=== PATIENT | female | born 1940 | race African-American/Black ===

== ENCOUNTER 2020-07-22 06:48 | Emergency (ER) | payer MEDICARE, OTHER ==
[2020-07-22] MEDS ORDERED: MORPHINE SULFATE 10 MG/ML INJ IV ONE (07:26)
[2020-07-22] MEDS ORDERED: ONDANSETRON HCL INJ/PF 4 MG/2 ML SDV IV ONE (07:26)
[2020-07-22] MEDS ORDERED: NORMAL SALINE 500 ML IV ONE (07:27)
--- NOTE | 2020-07-22 07:34 | ER Document Report ---
ED General - General Chief Complaint: Nausea/Vomiting Stated Complaint: NAUSEA/VOMITING,ABDOMINAL PAIN Time Seen by Provider: 07/22/20 07:14 Primary Care Provider: TRIPP ESPAÑA MD [Primary Care Provider] - Follow up as needed - HPI Notes: Patient is a 79-year-old female who presents to the emergency department for evaluation of abdominal pain, nausea, vomiting, constipation. The patient states that she normally has 2-3 bowel movements daily. She has not had a bowel movement in 3 days. She woke suddenly this morning at with nausea and vomiting and a sharp and stabbing left lower quadrant pain. She has never had pain similar to this in the past. She currently rates it a 5 out of 10 she has had multiple episodes of nonbloody, nonbilious emesis. She states her last bowel movement several days ago was normal. She states at times she feels as if she is going to pass out. Denies any urinary symptoms. She has had some GI issues, is due for endoscopy and colonoscopy at [facility]. - Related Data Allergies/Adverse Reactions: adhesive tape [Adhesive Tape] Allergy (Verified 07/25/12 11:23) iodine [Iodine] Allergy (Verified 07/25/12 11:23) Penicillins Allergy (Verified 07/25/12 11:23) Home Medications: Bydureon, Lantus, Lasix, Celebrex, losartan, Synthroid Past Medical History - General Information source: Patient - Social History Smoking Status: Never Smoker Family History: Reviewed & Not Pertinent - Past Medical History Cardiac Medical History: Reports: Hx Hypertension Endocrine Medical History: Reports: Hx Diabetes Mellitus Type 2, Hx Hypothyroidism GI Medical History: Reports: Hx Gastroesophageal Reflux Disease Musculoskeletal Medical History: Reports Hx Arthritis Past Surgical History: Reports: Hx Appendectomy, Hx Cholecystectomy, Hx Hysterectomy - Immunizations Hx Diphtheria, Pertussis, Tetanus Vaccination: Yes Review of Systems - Review of Systems Constitutional: No symptoms reported EENT: No symptoms reported Cardiovascular: No symptoms reported Respiratory: No symptoms reported Gastrointestinal: See HPI Genitourinary: No symptoms reported Musculoskeletal: No symptoms reported Skin: No symptoms reported Neurological/Psychological: No symptoms reported -: Yes All other systems reviewed and negative Physical Exam - Vital signs Vitals: Temp Resp Pulse Ox 98.4 F 20 100 07/22/20 06:59 07/22/20 06:59 07/22/20 06:59 - Notes Notes: This is a 79-year-old female who appears her stated age in a moderate amount of distress. She appears uncomfortable, mildly tachypneic. Vital signs reviewed, please refer to chart. Head is normocephalic, atraumatic. Pupils equal round, reactive to light. Neck is supple without meningismus. Heart is regular rate and rhythm. Lungs are clear to auscultation bilaterally. Abdomen is soft, diffusely tender without rebound or guarding, bowel sounds diminished but noted throughout. Extremities without cyanosis, clubbing. 3+ pitting foot and ankle edema noted. Posterior calves are nontender. Peripheral pulses are equal. Ski n is warm and dry. Patient is awake, alert, neurological exam is nonfocal. Course - Re-evaluation Re-evalutation: 07/22/20 07:33 Patient presents emergency department for evaluation. She is placed on a air sampling and monitoring, laboratory investigations are ordered. I did go ahead and order a CT scan of the abdomen pelvis with oral contrast only. The patient has an allergy to iodine. She is unsure as to what caused that, is unsure as to whether or not she is had an IV contrasted scan. I will go ahead and order just oral contrast at this time. We will treat this patient's pain and nausea. She is currently stable, we will continue to monitor. 07/22/20 11:17 I reviewed this patient's CT scan. She seems to have a large amount of urine in her bladder. She states that she does have some history of retention, states she has some difficulty emptying her bladder. I did order a bedside commode to the room, the patient is to try to urinate. She is to have a post void residual ultrasound performed to find out if she is retaining. Urinalysis to be sent. I do see a large amount of stool on the scan as well. I do not see any obvious signs of bowel obstruction. Awaiting radiologist's read. 07/22/20 12:54 Patient remains pain-free. Ultrasound reveals hydronephrosis. Her urinalysis ends up revealing large blood. I strongly suspect that this time the patient has passed a kidney stone. She really has minimal pain at this time, she may have passed into the bladder already, but her pain is still present mildly. She is not had any vomiting after being treated. I will consider home with pain medicine, nausea medicine. She already has some constipation issues, I will send her home with some Colace as well. I will send her with some Flomax as well. She is warned about orthostatic hypotension with this medication. The patient has a history of known urinary retention, she follows with Dr. De Leon. Bladder scan showed under 400 cc, but over 300 cc of urine. I talked at length with the patient as well as her daughter. I am not inclined to place a Aragon catheter at this time, given that this is an ongoing problem, the patient is not symptomatic with it. I encouraged him to follow-up closely with her u rologist, and they are amenable to this plan. She is to return to the emergency department for worsening or new concerning symptoms of any sort. - Vital Signs Vital signs: Temp Pulse Resp BP Pulse Ox 98.4 F 21 H 166/85 H 99 07/22/20 10:01 07/22/20 10:30 07/22/20 10:30 07/22/20 10:30 - Laboratory Result Diagrams: 07/22/20 08:05 07/22/20 08:05 Laboratory results interpreted by me: 07/22/20 07/22/20 07/22/20 08:05 08:05 11:52 Seg Neutrophils % 78.1 H Potassium 3.5 L Carbon Dioxide 31 H BUN 24 H Glucose 193 H Urine Protein 30 H Urine Glucose (UA) 150 H Urine Blood MODERATE H - Diagnostic Test Radiology reviewed: Image reviewed, Reports reviewed Radiology results interpreted by me: 07/22/20 12:57 Abdomen/Pelvis CT 07/22/20 07:27 IMPRESSION: Moderate left-sided hydronephrosis and perinephric stranding. The re is dilatation of at least the proximal and mid ureter. The left ureter runs adjacent to several cervical clips resulting in severe beam hardening artifact. Ureteral stone could easily be obscured. Moderate bladder distention. No evidence of bowel obstruction. Discharge - Discharge Clinical Impression: Left lower quadrant abdominal pain, Hydronephrosis of left kidney, Urinary retention Nausea and vomiting Qualifiers: Vomiting type: unspecified Vomiting Intractability: non-intractable Qualified Code(s): R11.2 - Nausea with vomiting, unspecified Condition: Stable Disposition: HOME, SELF-CARE Instructions: Abdominal Pain ([facility]), Vomiting ([facility]), Kidney Stone ([facility]), Urinary Retention ([facility]) Additional Instructions: Your findings today are most consistent with a kidney stone on the left. It is unclear at this time as to whether or not you have passed this. Please take medications as prescribed. Watch for constipation with the Percocet. As discussed, it does show that you are retaining some urine on examination here. As this is a known problem, we will have you follow-up with your urologist in regards to it. Please get up slowly with the Flomax as discussed. Follow-up with your urologist next week. Return to the emergency department with worsening or new concerning symptoms of any sort. Referrals: TRIPP ESPAÑA MD [Primary Care Provider] - Follow up as needed
[2020-07-22 08:27] LABS: ABSOLUTE LYMPHOCYTES (AUTO) 1.1 10^3/uL (0.5-4.7); ABSOLUTE MONOCYTES (AUTO) 0.3 10^3/uL (0.1-1.4); ABSOLUTE NEUT (AUTO) 4.9 10^3/uL (1.7-8.2); BASOPHILS % (AUTO) 0.4 % (0-2); EOSINOPHILS % (AUTO) 0.2 % (0-6); HEMATOCRIT 39.8 % (36.0-47.0); HEMOGLOBIN 13.7 g/dL (12.0-15.5); LYMPHOCYTES % (AUTO) 16.7 % (13-45); MEAN CORPUSCULAR HEMOGLOBIN 30.5 pg (27.0-33.4); MEAN CORPUSCULAR HGB CONC 34.5 g/dL (32.0-36.0); MEAN CORPUSCULAR VOLUME 88 fl (80-97); MONOCYTES % (AUTO) 4.6 % (3-13); PLATELET COUNT 189 10^3/uL (150-450); RED BLOOD COUNT 4.51 10^6/uL (3.72-5.28); RED CELL DISTRIBUTION WIDTH 12.5 % (11.5-14.0); SEGMENTED NEUTROPHILS % (AUTO) 78.1 % (42-78); TOTAL CELLS COUNTED % (AUTO) 100 %; WHITE BLOOD COUNT 6.3 10^3/uL (4.0-10.5)
[2020-07-22] MEDS ORDERED: PROMETHAZINE HCL INJ 25 MG/1 ML VIAL IV ONE (08:40)
[2020-07-22 08:57] LABS: ALBUMIN 4.1 g/dL (3.5-5.0); ALKALINE PHOSPHATASE 76 U/L (38-126); ANION GAP 9 (5-19); ASPARTATE AMINO TRANSFERASE 32 U/L (14-36); BILIRUBIN,DIRECT 0.2 mg/dL (0.0-0.4); BILIRUBIN,TOTAL 0.5 mg/dL (0.2-1.3); BLOOD UREA NITROGEN 24 mg/dL (7-20); CALCIUM 9.5 mg/dL (8.4-10.2); CARBON DIOXIDE 31 mmol/L (22-30); CHLORIDE 103 mmol/L (98-107); GLUCOSE 193 mg/dL (75-110); POTASSIUM 3.5 mmol/L (3.6-5.0); TOTAL PROTEIN 6.8 g/dL (6.3-8.2)
--- NOTE | 2020-07-22 11:22 | RADIOLOGY REPORT (SQ) ---
EXAM DESCRIPTION: CT ABD/PELVIS ORAL ONLY IMAGES COMPLETED DATE/TIME: 07/22/2020 11:08 am REASON FOR STUDY: N/V, constipation, eval for obstruction COMPARISON: None. TECHNIQUE: CT scan of the abdomen and pelvis performed without intravenous or oral contrast. Images reviewed with lung, soft tissue, and bone windows. Reconstructed coronal and sagittal MPR images revi ewed. All images stored on PACS. All CT scanners at this facility use dose modulation, iterative reconstruction, and/or weight based d osing when appropriate to reduce radiation dose to as low as reasonably achievable (ALARA). [facility]: Dose Right [facility]: CareDose [facility]: Dose Right [facility]: Teradose 4D [facility]: Smart [facility] RADIATION DOSE: CT Rad equipment meets quality standard of care and radiation dose reduction techniq ues were employed. CTDIvol: 10.3 mGy. DLP: 518 mGy-cm.mGy. LIMITATIONS: None. FINDINGS: LOWER CHEST: Bibasilar pleural thickening. Minimal basilar atelectasis. Small pericardia l effusion and/or pericardial thickening. NON-CONTRASTED LIVER, SPLEEN, ADRENALS: Evaluation limited by lack of IV contrast. No identified sign ificant masses. PANCREAS: No masses. No peripancreatic inflammatory changes. GALLBLADDER: Surgically absent. RIGHT KIDNEY AND URETER: No suspicious masses. Assessment limited by lack of IV contrast. Small non obstructing right renal calculi. No hydronephrosis or hydroureter. LEFT KIDNEY AND URETER: No suspicious masses. Assessment limited by lack of IV contrast. 4.6 mm non obstructing stone in the mid pole the left kidney. There is moderate left-sided hydronephrosis and hydroureter. There is left perinephric stranding. No definite ureteral stone but ureter runs adjace nt to several surgical clips which results in significant artifact. Small ureteral stone could easil y be obscured. AORTA AND RETROPERITONEUM: No aneurysm. No retroperitoneal masses or adenopathy. BOWEL AND PERITONEAL CAVITY: No obvious masses or inflammatory changes. No free fluid. APPENDIX: Normal. PELVIS, BLADDER, AND ABDOMINAL WALL:Bladder distention. BONES: No significant findings. OTHER: No other significant finding. IMPRESSION: Moderate left-sided hydronephrosis and perinephric stranding. There is dilatation of at least the proximal and mid ureter. The left ureter runs adjacent to several cervical clips resultin g in severe beam hardening artifact. Ureteral stone could easily be obscured. Moderate bladder distention. No evidence of bowel obstruction. COMMENT: Quality ID # [id number]: Final reports with documentation of one or more dose reduction techniques (e.g., Automated exposure control, adjustment of the mA and/or kV according to patient size, use of iterative reconstruction technique) TECHNICAL DOCUMENTATION: JOB ID: [id number] 2010 [employer]- All Rights Reserved Reading location - IP/workstation name: [email or web address]
[2020-07-22 12:06] LABS: APPEARANCE,URINE SLIGHTLY-CLOUDY; BILIRUBIN,URINE NEGATIVE (NEGATIVE); COLOR,URINE STRAW; GLUCOSE, URINE 150 mg/dL (NEGATIVE); KETONES,URINE NEGATIVE (NEGATIVE); LEUKOCYTE ESTERASE,URINE NEGATIVE (NEGATIVE); NITRITE,URINE NEGATIVE (NEGATIVE); PROTEIN,URINE 30 mg/dL (NEGATIVE); UROBILINOGEN,URINE NEGATIVE mg/dL (<2.0)
[2020-07-22] MEDS ORDERED: TAMSULOSIN HCL 0.4 MG CAP.SR.24H PO ONE (12:15)
[2020-07-22 13:15] VITALS: BP 181/79
== END 2020-07-22 13:27 | disposition home or self-care (01) ==
LOC: ER 06:48
DX: N13.30 Unspecified hydronephrosis (principal); R33.9 Retention of urine, unspecified; R11.2 Nausea with vomiting, unspecified; R10.9 Unspecified abdominal pain; K59.00 Constipation, unspecified; I10 Essential (primary) hypertension; E11.9 Type 2 diabetes mellitus without complications; E03.9 Hypothyroidism, unspecified; Z90.49 Acquired absence of other specified parts of digestive tract
CPT/HCPCS: 99285; 96374; 96375; 36415; 87086; 83690; 85025; 87088; 80053; 81001; 74176; J2270; A9270; J2550; J2405; J7040

== ENCOUNTER 2020-10-10 12:09 | Emergency (ER) | payer MEDICARE, OTHER ==
--- NOTE | 2020-10-10 13:54 | ER Document Report ---
ED Medical Screen (RME) - General Chief Complaint: General Weakness Stated Complaint: WEAKNESS Time Seen by Provider: 10/10/20 12:49 Primary Care Provider: TRIPP ESPAÑA MD [Primary Care Provider] - Follow up as needed - [facility] Notes: Patient is a 79-year-old female with a history of DM and HTN who presents with generalized weakness and cough for the past week. Patient reports nausea and vomiting and states she has been unable to keep any down the last couple days. She also reports a decreased appetite. Patient states her son is sick with similar symptoms but denies any other sick contacts or other potential COVID exposures. Patient denies fever, chest pain, and shortness of breath. - Related Data Allergies/Adverse Reactions: adhesive tape [Adhesive Tape] Allergy (Verified 07/25/12 11:23) iodine [Iodine] Allergy (Verified 07/25/12 11:23) Penicillins Allergy (Verified 07/25/12 11:23) Past Medical History - Past Medical History Cardiac Medical History: Reports: Hx Hypertension Endocrine Medical History: Reports: Hx Diabetes Mellitus Type 2, Hx Hypothyroidism GI Medical History: Reports: Hx Gastroesophageal Reflux Disease Musculoskeltal Medical History: Reports Hx Arthritis Past Surgical History: Reports: Hx Appendectomy, Hx Cholecystectomy, Hx Hysterectomy - Immunizations Hx Diphtheria, Pertussis, Tetanus Vaccination: Yes Physical Exam - Vital signs Vitals: Temp Pulse Resp BP Pulse Ox 98.9 F 72 16 128/50 H 99 10/10/20 12:46 10/10/20 12:46 10/10/20 12:46 10/10/20 12:46 10/10/20 12:46 - Respiratory Respiratory status: No respiratory distress Breath sounds: Normal Course - Re-evaluation Re-evalutation: I have greeted and performed a rapid initial assessment of this patient. A comprehensive ED assessment and evaluation of the patient, analysis of test results and completion of medical decision making process will be conducted by an additional ED providers. The patient was evaluated during the global COVID-19 pandemic and that diagnosis was suspected/considered upon their initial presentation. Their evaluation, treatment and testing was consistent with current guidelines for patients who present with complaints or symptoms that may be related to COVID-19. - Vital Signs Vital signs: Temp Pulse Resp BP Pulse Ox 98.9 F 72 16 128/50 H 99 10/10/20 12:46 10/10/20 12:46 10/10/20 12:46 10/10/20 12:46 10/10/20 12:46 Doctor's Discharge - Discharge Referrals: TRIPP ESPAÑA MD [Primary Care Provider] - Follow up as needed
--- NOTE | 2020-10-10 14:31 | RADIOLOGY REPORT (SQ) ---
EXAM DESCRIPTION: CHEST SINGLE VIEW IMAGES COMPLETED DATE/TIME: 10/10/2020 2:15 pm REASON FOR STUDY: cough COMPARISON: 07/25/2012 EXAM PARAMETERS: NUMBER OF VIEWS: One view. TECHNIQUE: Single frontal radiographic view of the chest acquired. RADIATION DOSE: NA LIMITATIONS: None. FINDINGS: LUNGS AND PLEURA: Patchy infiltrate suggested in the right infrahilar region. Minimal le ft base atelectasis or infiltrate. No pneumothorax or pleural effusion. MEDIASTINUM AND HILAR STRUCTURES: No masses. Contour normal. HEART AND VASCULAR STRUCTURES: Heart normal in size. Normal vasculature. BONES: No acute findings. HARDWARE: Multiple surgical metallic clips at the base of the neck on the right unchanged finding. OTHER: No other significant finding. IMPRESSION: 1. Patchy infiltrate suggested in the right infrahilar region. Minimal infiltrate or a telectasis at the left lung base. TECHNICAL DOCUMENTATION: JOB ID: [id number] 2010 [employer]- All Rights Reserved Reading location - IP/workstation name: [email or web address]
--- NOTE | 2020-10-10 14:48 | ER Document Report ---
ED General - General Chief Complaint: General Weakness Stated Complaint: WEAKNESS Time Seen by Provider: 10/10/20 12:49 Primary Care Provider: TRIPP ESPAÑA MD [Primary Care Provider] - Follow up in 3-5 days - HPI Notes: Patient is a 79-year-old female who presents with weakness. Patient states she has had symptoms for about 1 week. She has no appetite. Patient states she has not been eating or drinking much. She denies any chest pain. She states she just feels fatigued. Her son lives with her and is a telegraph and teletype operator and has been to [place]. They are concerned about Covid. Patient has had a cough productive of white phlegm. No fevers but she has felt cold. No abdominal pain or loss of taste or smell. No diarrhea or vomiting. - Related Data Allergies/Adverse Reactions: adhesive tape [Adhesive Tape] Allergy (Verified 10/10/20 14:47) iodine [Iodine] Allergy (Verified 10/10/20 14:47) Penicillins Allergy (Verified 10/10/20 14:47) Past Medical History - General Information source: Patient - Social History Smoking Status: Never Smoker Family History: Reviewed & Not Pertinent - Past Medical History Cardiac Medical History: Reports: Hx Hypertension Endocrine Medical History: Reports: Hx Diabetes Mellitus Type 2, Hx Hypothyroidism GI Medical History: Reports: Hx Gastroesophageal Reflux Disease Musculoskeletal Medical History: Reports Hx Arthritis Past Surgical History: Reports: Hx Appendectomy, Hx Cholecystectomy, Hx Hysterectomy - Immunizations Hx Diphtheria, Pertussis, Tetanus Vaccination: Yes Review of Systems - Review of Systems Notes: CONSTITUTIONAL: No fever or weight loss. Positive for fatigue. SKIN: No rash. HENT: No congestion, ear pain, or sore throat. EYES: No recent vision problems or eye pain. ENDOCRINE: Positive for hypothyroidism. CARDIOVASCULAR: No chest pain or edema. RESPIRATORY: Positive for cough. GASTROINTESTINAL: No abdominal pain, nausea, vomiting, bloody stools or diarrhea. GENITOURINARY: No dysuria. MUSCULOSKELETAL: No joint pain or swelling. NEUROLOGIC: No seizures. No headache, focal weakness or sensory changes. HEMATOLOGIC: No unusual bruising or bleeding. PSYCHIATRIC: No depression or anxiety. Physical Exam - Vital signs Vitals: Temp Pulse Resp BP Pulse Ox 98.9 F 72 16 128/50 H 99 10/10/20 12:46 10/10/20 12:46 10/10/20 12:46 10/10/20 12:46 10/10/20 12:46 - General General appearance: Appears well In distress: None Notes: VITAL SIGNS: Within normal limits. GENERAL: No acute distress, non-toxic appearance. HEAD: Normal with no signs of head trauma. EYES: EOMI, conjunctiva normal, no discharge. EARS: Hearing grossly intact. NOSE: Normal. NECK: Normal range of motion, no tenderness, supple, no lymphadenopathy, No adenopathy, no JVD. CHEST: Clear breath sounds bilaterally. No wheezes, rales, or rhonchi. CARDIAC: Regular rate and rhythm. VASCULAR: No Edema. ABDOMEN: Normal and soft with no tenderness, no masses or pulsatile masses. MUSCULOSKELETAL: Good range of motion of all major joints. Extremities without clubbing, cyanosis or edema. NEUROLOGICAL: Alert and oriented x 3. No focal sensory or strength deficits. Speech normal. Follows commands appropriately. PSYCHIATRIC: Normal Affect, judgement and mood. SKIN: Normal appearance with no rashes or lesions. Course - Re-evaluation Re-evalutation: 10/10/20 20:45 Patient appears well and her exam. She did have initial slightly elevated t roponin. I discussed the EKG and the results with Dr. Curtis from cardiology. He recommended we obtain a second troponin and if it is decreased, that this is likely not cardiac and she can be discharged. I did let him know of the second troponin and he agreed that she could be discharged. Patient's x- ray is suspicious for pneumonia. She is on room air and in no acute distress. I did discuss with her that the Covid testing will take several days to result and she will be called with the results and she needs to self isolate. Patient was sent home with azithromycin to cover the pneumonia. She was given strict return precautions. Patient's Covid test came back as positive. I did call her but she did not answer the phone. I left her a message saying that she needs to call back to the ER to receive her results. - Vital Signs Vital signs: Temp Pulse Resp BP Pulse Ox 99.3 F 78 16 143/107 H 96 10/10/20 19:09 10/10/20 19:09 10/10/20 19:09 10/10/20 19:09 10/10/20 19:09 - Laboratory Results Result Diagrams: 10/10/20 14:42 10/10/20 14:42 Laboratory Results Interpreted: 10/10/20 10/10/20 10/10/20 14:42 16:09 17:41 Chloride 97 L Carbon Dioxide 34 H BUN 28 H Est GFR ( Amer) 56 L Est GFR (MDRD) Non-Af 46 L Calcium 8.3 L Direct Bilirubin 0.5 H AST 62 H Total Protein 5.9 L Albumin 3.4 L Urine Protein 100 H Urine Ketones 20 H Urine Blood SMALL H Urine Urobilinogen 2.0 H Ur Leukocyte Esterase TRACE H SARS-CoV-2 Rap RNA(RT-PCR) POSITIVE H Critical Laboratory Results Reviewed: No Critical Results - Radiology Results Critical Radiology Results Reviewed: No Critical Results - EKG Interpretation by Ma EKG shows normal: Sinus rhythm Rate: Normal Rhythm: NSR Merino/QRS: RBBB, LAHB/LAFB When compared to previous EKG there are: Changes noted Additional EKG results interpreted by me: 10/10/20 16:10 Sinus rhythm at a rate of 79. QTc 491. Right bundle branch block present. EKG is changed from previous. Discharge - Discharge Clinical Impression: Suspected COVID-19 virus infection Pneumonia Qualifiers: Pneumonia type: due to unspecified organism Laterality: right Lung location: lower lobe of lung Qualified Code(s): J18.9 - Pneumonia, unspecified organism Condition: Stable Disposition: HOME, SELF-CARE Instructions: COVID-19 Guidance for Persons Under Investigation, Pneumonia ([facility]) Additional Instructions: You do have evidence of pneumonia. You were also tested for COVID-19. Please self isolate until you are called with a negative result. Please take your antibiotics as prescribed. Return to the ER immediately for any worsening symptoms or any shortness of breath. Prescriptions: Azithromycin [Zithromax 250 mg Tablet] 250 mg PO DAILY #4 tablet Referrals: TRIPP ESPAÑA MD [Primary Care Provider] - Follow up in 3-5 days
[2020-10-10 15:01] LABS: ABSOLUTE LYMPHOCYTES (AUTO) 0.9 10^3/uL (0.5-4.7); ABSOLUTE MONOCYTES (AUTO) 0.2 10^3/uL (0.1-1.4); ABSOLUTE NEUT (AUTO) 3.1 10^3/uL (1.7-8.2); BASOPHILS % (AUTO) 0.2 % (0-2); HEMATOCRIT 36.2 % (36.0-47.0); HEMOGLOBIN 12.1 g/dL (12.0-15.5); LYMPHOCYTES % (AUTO) 21.8 % (13-45); MEAN CORPUSCULAR HEMOGLOBIN 29.4 pg (27.0-33.4); MEAN CORPUSCULAR HGB CONC 33.5 g/dL (32.0-36.0); MEAN CORPUSCULAR VOLUME 88 fl (80-97); MONOCYTES % (AUTO) 5.6 % (3-13); PLATELET COUNT 177 10^3/uL (150-450); RED BLOOD COUNT 4.14 10^6/uL (3.72-5.28); RED CELL DISTRIBUTION WIDTH 12.6 % (11.5-14.0); SEGMENTED NEUTROPHILS % (AUTO) 72.4 % (42-78); TOTAL CELLS COUNTED % (AUTO) 100 %; WHITE BLOOD COUNT 4.2 10^3/uL (4.0-10.5)
[2020-10-10 15:18] LABS: ALBUMIN 3.4 g/dL (3.5-5.0); ALKALINE PHOSPHATASE 41 U/L (38-126); ANION GAP 7 (5-19); ASPARTATE AMINO TRANSFERASE 62 U/L (14-36); BILIRUBIN,DIRECT 0.5 mg/dL (0.0-0.4); BILIRUBIN,TOTAL 0.8 mg/dL (0.2-1.3); BLOOD UREA NITROGEN 28 mg/dL (7-20); CALCIUM 8.3 mg/dL (8.4-10.2); CARBON DIOXIDE 34 mmol/L (22-30); CHLORIDE 97 mmol/L (98-107); GLUCOSE 79 mg/dL (75-110); POTASSIUM 3.7 mmol/L (3.6-5.0); TOTAL PROTEIN 5.9 g/dL (6.3-8.2)
[2020-10-10] MEDS ORDERED: NORMAL SALINE 1000 ML 1,000 ML IV ONE (15:34)
[2020-10-10] MEDS ORDERED: AZITHROMYCIN 250 MG TABLET PO ONE (16:21)
[2020-10-10 17:59] LABS: APPEARANCE,URINE SLIGHTLY-CLOUDY; BILIRUBIN,URINE NEGATIVE (NEGATIVE); COLOR,URINE YELLOW; GLUCOSE, URINE NEGATIVE (NEGATIVE); KETONES,URINE 20 mg/dL (NEGATIVE); LEUKOCYTE ESTERASE,URINE TRACE (NEGATIVE); NITRITE,URINE NEGATIVE (NEGATIVE); PROTEIN,URINE 100 mg/dL (NEGATIVE); URINE SPECIFIC GRAVITY 1.018
--- NOTE | 2020-10-10 18:10 | EKG REPORT ---
SEVERITY:- ABNORMAL ECG - SINUS RHYTHM RBBB AND LAFB : Confirmed by: Maryam Mahmood MD 10-Oct-2020 18:09:57
[2020-10-10 18:29] LABS: A TYPE INFLUENZA AG NEGATIVE (NEGATIVE); B INFLUENZA AG NEGATIVE (NEGATIVE)
[2020-10-10 19:11] VITALS: BP 143/107
== END 2020-10-10 19:09 | disposition home or self-care (01) ==
LOC: ER 12:09
DX: U07.1 COVID-19 (principal); J18.9 Pneumonia, unspecified organism; R53.1 Weakness; I10 Essential (primary) hypertension; E11.9 Type 2 diabetes mellitus without complications
CPT/HCPCS: 93005; 99285; 96360; 36415; 87086; 85025; 0241U ×4; 87088; 80053; 81001; 84484; 87804; 71045; 93010; A9270; J7030; C9803